=== PATIENT | female | born 1965 | race Asian ===

== ENCOUNTER → 2022-01-15 09:48 | Outpatient (CLI) | payer OTHER, SELFPAY ==
--- NOTE | 2022-01-15 09:51 | DI.RAD.S_ITS ---
PROCEDURE: XR ABDOMEN 1V INDICATIONS: Lost IUD TECHNIQUE: One view of the abdomen acquired. COMPARISON: None. FINDINGS: Surgical changes and devices: None. Bowel: Bowel gas pattern is normal. Soft tissues: No suspicious abdominal calcifications. Visualized solid organ contours appear normal in size. No IUD identified. Bones: No suspicious bony lesions. IMPRESSION: No IUD visualized. Dictated by: Chris Wilson M.D. on 01/15/2022 at 15:19 Approved by: Chris Wilson M.D. on 01/15/2022 at 15:31
== END ==
PROVIDERS: PCP Physician Assistant; Referring Provider Specialist; Visit Provider Specialist
DX: T83.32XA Displacement of intrauterine contraceptive device, initial encounter (principal)
CPT/HCPCS: 74018